=== PATIENT | female | born 1955 | race Caucasian/White ===

== ENCOUNTER 2017-03-15 09:40 | Outpatient (CLI) | payer BC | END 2017-03-15 09:41 | disposition home or self-care (01) | LOC: BICMAMMO 09:40 | DX: Z12.31 Encounter for screening mammogram for malignant neoplasm of breast (principal); Z13.820 Encounter for screening for osteoporosis; M81.0 Age-related osteoporosis without current pathological fracture | CPT/HCPCS: 77063; 77080 ==

== ENCOUNTER 2020-02-16 09:17 | Outpatient (CLI) | payer BC ==
--- NOTE | 2020-02-16 11:33 | MMO ---
Bilateral MAMMO Bilat Screen [facility]. CLINICAL HISTORY: Patient is 64 years old and is seen for screening. The patient has no family history of breast cancer. The patient has no personal history of cancer. VIEWS: The views performed were: bilateral craniocaudal with tomosynthesis and bilateral mediolateral oblique with tomosynthesis. FILMS COMPARED: The present examination has been compared to a prior imaging study performed at [facility] on 03/15/2017. This study has been interpreted with the assistance of computer-aided detection. MAMMOGRAM FINDINGS: There are scattered fibroglandular densities. Finding 1: There are stable benign appearing calcifications seen in both breasts. Finding 2: There are stable global asymmetries seen in the sub-areolar region of both breasts. There are no suspicious masses, suspicious calcifications, or new areas of architectural distortion. IMPRESSION: THERE IS NO MAMMOGRAPHIC EVIDENCE OF MALIGNANCY. A ROUTINE FOLLOW-UP MAMMOGRAM IN 1 YEAR IS RECOMMENDED. THE RESULTS OF THIS EXAM WERE SENT TO THE PATIENT. ACR BI-RADS Category 2 - Benign finding MAMMOGRAPHY NOTE: 1. A negative mammogram report should not delay a biopsy if a dominant of clinically suspicious mass is present. 2. Approximately 10% to 15% of breast cancers are not detected by mammography. 3. Adenosis and dense breasts may obscure an underlying neoplasm. Reported by: MARNIE COLEMAN MD Electonically Signed: [id number]
== END 2020-02-16 09:18 | disposition home or self-care (01) ==
LOC: BICMAMMO 09:17
PROVIDERS: ATTEND Nurse Practitioner Adult Health
DX: Z12.31 Encounter for screening mammogram for malignant neoplasm of breast (principal)
CPT/HCPCS: 77063; 77067

== ENCOUNTER 2021-01-24 15:02 | Observation (INO) | payer MEDICARE, SELFPAY ==
[2021-01-24 15:44] VITALS: BMI 21.4
[2021-01-24] MEDS ORDERED: Calcium Carbonate 500 MG ChewTAB PO PRN (17:27)
[2021-01-24] MEDS ORDERED: Ondansetron ODT 4 MG TAB PO PRN (17:27)
[2021-01-24] MEDS ORDERED: Senokot S 8.6-50 MG TAB PO PRN (17:27)
[2021-01-24] MEDS ORDERED: Ondansetron PF 4 MG/2 ML Vial IVP PRN (17:27)
[2021-01-24] MEDS ORDERED: Acetaminophen 325 MG TAB PO PRN (17:27)
[2021-01-24 19:17] LABS: Anion Gap 16 mmol/L (10-20); BUN (Urea Nitrogen) 5 mg/dL (9.8-20.1); Calc. Creatinine Clearance 73 mL/min (70-130); Calcium 9.7 mg/dL (7.8-10.44); Carbon Dioxide 27 mmol/L (23-31); Chloride 87 mmol/L (98-107); Glucose 77 mg/dL (80-115); Potassium 3.5 mmol/L (3.5-5.1); Sodium 126 mmol/L (136-145)
[2021-01-24] MEDS ORDERED: Lorazepam 2 MG/ML VIAL IM PRN (19:17)
[2021-01-24] MEDS ORDERED: Lorazepam 1 MG TAB PO PRN (19:17)
[2021-01-24] MEDS ORDERED: Electrolyte Replacement Protocol FS PRN (19:30)
[2021-01-24] MEDS ORDERED: Electrolyte Replacement Protocol 1 EACH FS SCH (19:30)
[2021-01-24] MEDS ORDERED: Lorazepam 1 MG TAB PO SCH (19:30)
[2021-01-24] MEDS ORDERED: Labetalol HCl 100 MG/20 ML VIAL ONE (19:43)
[2021-01-24 19:52] LABS: Bilirubin, Direct 0.3 mg/dL (0.1-0.3); Magnesium 1.5 mg/dL (1.6-2.6); Phosphorus 2.9 mg/dL (2.3-4.7)
[2021-01-24] MEDS: Atorvastatin Calcium 10 MG TAB PO SCH (20:27)
[2021-01-24] MEDS: Multivit, Therapeutic 1 TAB PO SCH (20:28)
[2021-01-24] MEDS: Thiamine HCl 200 MG/2 ML VIAL SLOW IVP SCH (20:28)
[2021-01-24] MEDS ORDERED: Atorvastatin Calcium 10 MG TAB PO SCH (21:00)
[2021-01-24] MEDS ORDERED: hydrALAZINE 20 MG/ML VIAL SLOW IVP PRN (21:08)
[2021-01-24] MEDS ORDERED: Potassium Chloride 20 MEQ TAB PO SCH (21:15)
[2021-01-24] MEDS ORDERED: Magnesium 2 GM/50 ML 2 GM in Premix Bag 1 BAG IVPB SCH (21:15)
[2021-01-24] MEDS: Nicotine 14 MG PATCH TD SCH (21:34)
[2021-01-25 01:00] LABS: Anion Gap 11 mmol/L (10-20); BUN (Urea Nitrogen) 9 mg/dL (9.8-20.1); Calc. Creatinine Clearance 56 mL/min (70-130); Calcium 8.9 mg/dL (7.8-10.44); Carbon Dioxide 27 mmol/L (23-31); Chloride 88 mmol/L (98-107); Glucose 209 mg/dL (80-115); Potassium 3.4 mmol/L (3.5-5.1); Sodium 123 mmol/L (136-145)
[2021-01-25] MEDS ORDERED: Potassium Chloride 20 MEQ TAB PO SCH (02:45)
[2021-01-25 09:55] LABS: Anion Gap 15 mmol/L (10-20); BUN (Urea Nitrogen) 9 mg/dL (9.8-20.1); Calc. Creatinine Clearance 71 mL/min (70-130); Calcium 9.1 mg/dL (7.8-10.44); Carbon Dioxide 23 mmol/L (23-31); Chloride 93 mmol/L (98-107); Glucose 99 mg/dL (80-115); Potassium 4.4 mmol/L (3.5-5.1); Sodium 127 mmol/L (136-145)
[2021-01-25 15:13] LABS: Anion Gap 12 mmol/L (10-20); BUN (Urea Nitrogen) 10 mg/dL (9.8-20.1); Calc. Creatinine Clearance 69 mL/min (70-130); Carbon Dioxide 26 mmol/L (23-31); Chloride 95 mmol/L (98-107); Glucose 176 mg/dL (80-115); Potassium 4.3 mmol/L (3.5-5.1); Sodium 129 mmol/L (136-145)
[2021-01-25] MEDS ORDERED: Lorazepam 1 MG TAB PO PRN (19:17)
[2021-01-25] MEDS ORDERED: Folic Acid 1 MG TAB PO SCH (21:00)
[2021-01-25] MEDS: Atorvastatin Calcium 10 MG TAB PO SCH (21:38)
[2021-01-25] MEDS: Multivit, Therapeutic 1 TAB PO SCH (21:38)
[2021-01-25] MEDS: Thiamine HCl 200 MG/2 ML VIAL SLOW IVP SCH (21:40)
[2021-01-25] MEDS: Nicotine 14 MG PATCH TD SCH (21:45)
[2021-01-26 08:10] LABS: Anion Gap 13 mmol/L (10-20); BUN (Urea Nitrogen) 9 mg/dL (9.8-20.1); Calc. Creatinine Clearance 80 mL/min (70-130); Calcium 9.1 mg/dL (7.8-10.44); Carbon Dioxide 23 mmol/L (23-31); Chloride 98 mmol/L (98-107); Glucose 92 mg/dL (80-115); Potassium 4.4 mmol/L (3.5-5.1); Sodium 130 mmol/L (136-145)
[2021-01-26] MEDS ORDERED: Lisinopril 20 MG TAB PO SCH ×2 (10:15→21:00)
[2021-01-26 11:25] VITALS: BP 156/92
[2021-01-26 12:30] VITALS: TEMP 98.3
[2021-01-26] MEDS ORDERED: Lorazepam 1 MG TAB PO PRN (19:17)
[2021-01-26] MEDS ORDERED: Lorazepam 0.5 MG TAB PO SCH (19:30)
[2021-01-27] MEDS ORDERED: Lorazepam 0.5 MG TAB PO PRN (19:17)
[2021-01-27] MEDS ORDERED: Thiamine 100 MG TAB PO SCH (21:00)
== END 2021-01-26 12:27 | disposition home or self-care (01) ==
LOC: INTOOBSV 15:37 → T4-A 15:37
PROVIDERS: ADMIT Family Medicine; ATTEND Family Medicine
DX: E87.1 Hypo-osmolality and hyponatremia (principal); E87.8 Other disorders of electrolyte and fluid balance, not elsewhere classified; E87.6 Hypokalemia; R06.2 Wheezing; F10.20 Alcohol dependence, uncomplicated; F17.210 Nicotine dependence, cigarettes, uncomplicated; E78.5 Hyperlipidemia, unspecified; I10 Essential (primary) hypertension; Z79.899 Other long term (current) drug therapy; Y90.0 Blood alcohol level of less than 20 mg/100 ml
CPT/HCPCS: 80048 ×3; 80307; 82248; 83735; 83930; 83935; 84100; 84300; 96374; 96375; 96376; G0378 ×3; 36415; J0360; J3411; J3475

== ENCOUNTER 2022-04-10 09:43 | Outpatient (CLI) | payer OTHER | END 2022-04-10 09:44 | disposition home or self-care (01) | LOC: BICMAMMO 09:43 | PROVIDERS: ATTEND Family Medicine | DX: Z12.31 Encounter for screening mammogram for malignant neoplasm of breast (principal); Z13.820 Encounter for screening for osteoporosis; Z78.0 Asymptomatic menopausal state; M81.0 Age-related osteoporosis without current pathological fracture | CPT/HCPCS: 77063; 77067; 77080 ==